=== PATIENT | female | born 1975 | race Caucasian/White ===

== ENCOUNTER 2021-05-28 16:35 | Emergency (ER) | payer OTHER ==
--- NOTE | 2021-05-28 17:06 | ED Physician Documentation ---
History of Present Illness - Stated complaint Stated Complaint: BAT BITE - Chief complaint Chief Complaint: Laceration - History obtained from History obtained from: Patient - History of Present Illness Timing: Today Pain level max: 0 Pain level now: 0 - Additonal information Additional information: 45-year-old female states that she was moving an outdoor patio umbrella when she opened the umbrella and a bat flew out landing on her child's head. She instinctively grabbed the bat and threw it. The bat bit her on the finger. No bleeding. She is here for rabies vaccination. Review of Systems Constitutional: denies: Fever, Chills Respiratory: denies: Cough GI: denies: Vomiting, Diarrhea Skin: denies: Rash PD PAST MEDICAL HISTORY - Past Medical History Past Medical History: No - Past Surgical History Past Surgical History: Yes /[employer]: section - Present Medications Home Medications: Ambulatory Orders Medication Instructions Recorded Confirmed buPROPion HCL [Bupropion Xl] 150 mg PO DAILY 05/28/21 05/28/21 - Allergies Allergies/Adverse Reactions: Allergies Allergy/AdvReac Type Severity Reaction Status Date / Time No Known Drug Allergies Allergy Verified 05/28/21 16:41 - Social History Does the pt smoke?: No Smoking Status: Never smoker Does the pt drink ETOH?: Yes Does the pt have substance abuse?: No - Immunizations Immunizations are current?: Yes PD ED PE NORMAL - Vitals Vital signs reviewed: Yes - General General: Alert and oriented X 3, No acute distress - Respiratory Respiratory: No respiratory distress - Derm Derm: Warm and dry - Extremities Extremities: Other (Small bite to the right index finger) - Neuro Neuro: Alert and oriented X 3 - Psych Psych: Normal mood, Normal affect Results - Vitals Vitals: Vital Signs - 24 hr 05/28/21 16:41 Temperature 36.5 C Heart Rate 75 Respiratory 16 Rate Blood Pressure 128/67 O2 Saturation 100 Oxygen O2 Source Room air PD MEDICAL DECISION MAKING - ED course Complexity details: considered differential, d/w patient ED course: Rabies immunoglobulin and rabies vaccination given. Patient will need to follow-up for further vaccinations. She is from [place] and will likely do the series there. Patient counseled regarding signs and symptoms for which I believe and urgent re-evaluation would be necessary. Patient with good understanding of and agreement to plan and is comfortable going home at this time This document was made in part using voice recognition software. While efforts are made to proofread this document, sound alike and grammatical errors may occur. Departure - Departure Disposition: 01 Home, Self Care Clinical Impression: Bat bite of finger Qualifiers: Encounter type: initial encounter Qualified Code(s): S61.259A - Open bite of unspecified finger without damage to nail, initial encounter Condition: Good Instructions: Rabies Vaccine suspension for injection, Rabies Immune Globulin human RIG solution for injection, Rabies Comments: you will need 3 more vaccinations. Today is day 0. You need vaccines on day 3, 7, and 14. You were given the rabies immunoglobulin today as well. You do not need to have this at your next appointment. Please contact your doctor in [place] tomorrow to discuss how to obtain the vaccinations in [place]. Return if you worsen.
[2021-05-28] MEDS: RABIES IMMUNE GLOBULIN 300 UNITS/2 ML IM STA (17:25)
[2021-05-28] MEDS: RABIES VACCINE 2.5 UNIT SYRINGE IM ONE (17:36)
[2021-05-28 17:53] VITALS: BP 118/78
== END 2021-05-28 17:52 | disposition home or self-care (01) ==
LOC: ED 16:35
DX: S61.259A Open bite of unspecified finger without damage to nail, initial encounter (principal); W55.81XA Bitten by other mammals, initial encounter; Z29.14 Encounter for prophylactic rabies immune globulin
CPT/HCPCS: 90471; 96372; 99282; 99283